=== PATIENT | female | born 1995 | race Caucasian/White ===

== ENCOUNTER → 2020-07-03 11:03 | Outpatient (CLI) | payer OTHER, SELFPAY ==
[2020-07-03 11:28] LABS: Add Manual Diff / Slide Review NO; Basophils Absolute Auto 100 /uL (0-100); Basophils Percent Auto 1.1 % (0-2); Eosinophils Absolute Auto 100 /uL (0-450); Eosinophils Percent Auto 0.8 % (2-4); Hematocrit 37.7 % (36-46); Hemoglobin 13.1 g/dL (12.0-16.0); Lymphocytes Absolute Auto 1700 /uL (1100-4500); Lymphocytes Percent Auto 22.4 % (25-40); Mean Corpuscular HGB Conc 34.9 % (30-36); Mean Corpuscular Volume 83.2 fL (80-100); Monocytes Absolute Auto 500 /uL (0-900); Monocytes Percent Auto 6.5 % (3-14); Neutrophils Absolute Auto 5100 /uL (1500-7000); Neutrophils Percent Auto 69.2 % (50-75); Platelet Count 220 X10^3/uL (150-400); Red Blood Cell Count 4.53 X10^6/uL (4.0-5.2); Red Cell Distribution Width 12.5 % (11.6-14.8); White Blood Cell Count 7.4 X10^3/uL (4.5-11.0)
[2020-07-03 12:22] LABS: Alanine Aminotransferase 11 IU/L (<35); Albumin 4.6 g/dL (3.5-5.0); Albumin Globulin Ratio 1.3 (1.0-2.8); Alkaline Phosphatase 62 U/L (38-126); Aspartate Aminotransferase 22 IU/L (14-36); BUN Creatinine Ratio 9.3 (6-22); Bilirubin Total 1.3 mg/dL (0.2-1.3); Blood Urea Nitrogen 5 mg/dL (7-17); Calcium 9.8 mg/dL (8.4-10.2); Carbon Dioxide 25 mmol/L (22-32); Chloride 103 mmol/L (98-107); Estimated Glomerular Filt Rate > 60.0 mL/min (>60); Globulin 3.6 g/dL (1.7-4.1); Glucose 86 mg/dL (70-100); HEMOLYSIS < 15 (0-50); Potassium 4.1 mmol/L (3.4-5.1); Sodium 138 mmol/L (137-145); Total Protein 8.2 g/dL (6.3-8.2)
[2020-07-03 12:59] LABS: Pregnancy Test Urine Positive (Negative)
[2020-07-03 13:03] LABS: HCG Quantitative /Beta subunit 138950 mIU/mL
== END ==
PROVIDERS: PCP Registered Nurse; Referring Provider Registered Nurse; Visit Provider Registered Nurse
DX: Z30.40 Encounter for surveillance of contraceptives, unspecified (principal); Z32.01 Encounter for pregnancy test, result positive
CPT/HCPCS: 36415; 80053; 81025; 84702; 85025

== ENCOUNTER → 2020-07-14 13:39 | Outpatient (CLI) | payer OTHER, SELFPAY ==
[2020-07-14 14:22] LABS: Add Manual Diff / Slide Review NO; Basophils Absolute Auto 0 /uL (0-100); Basophils Percent Auto 0.4 % (0-2); Eosinophils Absolute Auto 0 /uL (0-450); Eosinophils Percent Auto 0.5 % (2-4); Hematocrit 35.2 % (36-46); Hemoglobin 12.5 g/dL (12.0-16.0); Lymphocytes Absolute Auto 1400 /uL (1100-4500); Lymphocytes Percent Auto 15.2 % (25-40); Mean Corpuscular HGB Conc 35.5 % (30-36); Mean Corpuscular Hemoglobin 29.6 PG (26-34); Mean Corpuscular Volume 83.2 fL (80-100); Monocytes Absolute Auto 500 /uL (0-900); Neutrophils Absolute Auto 7300 /uL (1500-7000); Neutrophils Percent Auto 78.9 % (50-75); Platelet Count 219 X10^3/uL (150-400); Red Blood Cell Count 4.24 X10^6/uL (4.0-5.2); Red Cell Distribution Width 12.3 % (11.6-14.8); White Blood Cell Count 9.2 X10^3/uL (4.5-11.0)
[2020-07-14 14:36] LABS: Appearance Urine UA CLEAR; Bilirubin Urine UA NEGATIVE (NEGATIVE); Color Urine UA YELLOW; Glucose Urine UA NEGATIVE (Negative); Ketones Urine UA NEGATIVE (NEGATIVE); Leukocyte Esterase Urine UA TRACE (NEGATIVE); Nitrite Urine UA NEGATIVE (Negative); Occult Blood Urine UA TRACE-LYSED (Negative); Protein Urine UA NEGATIVE (Negative); Urobilinogen Urine UA 0.2 E.U./dL (0.2)
[2020-07-14 15:09] LABS: RBC Urine 0-1/HPF (0-5/HPF)
[2020-07-14 15:10] LABS: Amorphous Sediment Urine 1+; Bacteria Urine Moderate (10-30); Squamous Epithelial Cell Urine 1-5 /HPF (0-5/HPF); WBC Urine 1-5/HPF (0-5/HPF)
[2020-07-14 16:19] LABS: Hepatitis B Surface Antigen NEGATIVE s/c (NEGATIVE); Rubella Antibody IgG 32.9 IU/mL (>15)
[2020-07-14 16:42] LABS: HIV 1 & 2 Ab/Ag 4th Gen Combo NEGATIVE (NEGATIVE); Hep C Virus Ab w/Reflex Quant NEGATIVE s/c (NEGATIVE)
[2020-07-15 05:37] LABS: HSV Type 1 AB, IgG 4.51 index (0.00-0.90)
[2020-07-15 06:36] LABS: RPR Screen Non Reactive (Non Reactive)
[2020-07-15 10:44] LABS: Varicella IgG Antibody 561 index (Immune >165)
== END ==
PROVIDERS: PCP Registered Nurse; Referring Provider Obstetrics & Gynecology; Visit Provider Obstetrics & Gynecology
DX: Z34.01 Encounter for supervision of normal first pregnancy, first trimester (principal)
CPT/HCPCS: 36415; 80055; 81003; 81015; 86695; 86787; 86803; 86850; 86900; 86901; 87077; 87086; 87389

== ENCOUNTER → 2020-07-28 15:53 | Outpatient (CLI) | payer OTHER, SELFPAY ==
[2020-07-28 17:42] LABS: Urine N gonorrhoeae NOT DETECTED
[2020-07-28 17:45] LABS: Urine Chlamydia NOT DETECTED
== END ==
PROVIDERS: PCP Registered Nurse; Referring Provider Obstetrics & Gynecology; Visit Provider Obstetrics & Gynecology
DX: Z34.00 Encounter for supervision of normal first pregnancy, unspecified trimester (principal); Z3A.11 11 weeks gestation of pregnancy
CPT/HCPCS: 87491; 87591

== ENCOUNTER → 2020-09-08 10:48 | Outpatient (CLI) | payer OTHER, SELFPAY ==
--- NOTE | 2020-09-08 10:49 | DI.US.S_ITS ---
PROCEDURE: US OB >= 14 WEEKS FETUS INDICATIONS: Anatomy OUTSIDE/PRIOR DATING DATA: Last menstrual period (LMP): Unknown . LMP-based estimated date of delivery (HALEY): Unknown . First dating scan (date and location): 07/03/20 . Estimated date of delivery (HALEY) from first dating scan: 01/28/21 . TECHNIQUE: Real-time scanning was performed of the fetus, with image documentation and biometric measurements. Endovaginal scanning: Not performed COMPARISON: [facility], OB <= 14 WEEKS FETUS, 07/14/2020, 13:22. [facility], OB >= 14 WEEKS FETUS, 08/22/2020, 8:40. FINDINGS: General: A single living intrauterine gestation is present. Presentation: Variable (transverse and breech). Placenta: Placental position is anterior , without previa. Amniotic fluid index: 13.6 cm, normal range is 5-24 cm. heart rate: 149 beats per minute. Maternal cervical canal: 4.1 cm long. Normal lower limit is 2.5 cm. biometrics: Biparietal diameter: 4.6 cm, 20 weeks 0 days Head circumference: 17.4 cm, 20 weeks 0 days Abdominal circumference: 14.5 cm, 19 weeks 6 days Femur length: 3.3 cm, 20 weeks 2 days Estimated gestational age from initial scan: 19 weeks 5 days Composite gestational age from present scan: 20 weeks 0 days Estimated weight and percentile: 330 g, 66th percentile Measurement variability for biometric dating: +/- 7 days from 14 weeks to 15 weeks 6 days gestation, +/- 10 days from 16 weeks to 21 weeks 6 days gestation, +/- 2 weeks from 22 weeks to 27 weeks 6 days gestation, +/- 3 weeks for 28 weeks gestation or later. weight reference: 4500 g or EFW >90/95% is considered macrosomia or large for gestational age. EFW <10% is small for gestational age. EFW 5% or less is considered intra-uterine growth restriction. Anatomic survey: Neuro: Ventricles are non-dilated at less than 10 mm. Cisterna magna is normal at 3-11 mm. Cerebellum is normal in size and morphology. Nuchal skin fold: Normal at less than 6 mm between 14-21 weeks gestational age. Face: Nose and lips, facial profile are normal. Spine: No evidence for spina bifida. Heart: 4-chambered heart is present, with normal ventricular outflow tracts. Diaphragm: Diaphragm is intact. Stomach: Left-sided stomach is present. Kidneys: No hydronephrosis. Normal is less than 5 mm in 2nd trimester, less than 7 mm in 3rd trimester. Cord: 3-vessel cord has orthotopic insertion. Bladder: Normal in size. Extremities: All 4 extremities identified. IMPRESSION: Single living intrauterine fetus in variable presentation. Normal anatomic survey. Expected interval growth Dictated by: Geraldo Lopes M.D. on 09/08/2020 at 15:37 Approved by: Geraldo Lopes M.D. on 09/08/2020 at 15:40
== END ==
PROVIDERS: PCP Registered Nurse; Referring Provider Obstetrics & Gynecology; Visit Provider Obstetrics & Gynecology
DX: Z34.02 Encounter for supervision of normal first pregnancy, second trimester (principal); Z3A.20 20 weeks gestation of pregnancy
CPT/HCPCS: 76811

== ENCOUNTER → 2020-10-06 14:37 | Outpatient (CLI) | payer OTHER, SELFPAY ==
[2020-10-06 16:12] LABS: COVID19 -Nasal RAPID Negative (Negative)
== END ==
PROVIDERS: PCP Registered Nurse; Visit Provider Physician Assistant
DX: Z20.822 Contact with and (suspected) exposure to COVID-19 (principal)
CPT/HCPCS: 87635

== ENCOUNTER → 2020-11-04 15:23 | Outpatient (CLI) | payer OTHER, SELFPAY ==
[2020-11-04 17:29] LABS: Hematocrit 28.8 % (36-46)
[2020-11-04 18:00] LABS: GTT (PREG) 1 Hour PP 50gm Dose 127 mg/dL (76-139)
== END ==
PROVIDERS: PCP Registered Nurse; Referring Provider Obstetrics & Gynecology; Visit Provider Obstetrics & Gynecology
DX: Z34.02 Encounter for supervision of normal first pregnancy, second trimester (principal); Z3A.26 26 weeks gestation of pregnancy
CPT/HCPCS: 36415; 82950; 85014; 85018

== ENCOUNTER → 2020-11-07 14:37 | Outpatient (CLI) | payer OTHER, MEDICAID, SELFPAY ==
[2020-11-08 16:35] LABS: Candida species Negative (Negative); Gardnerella vaginalis Positive (Negative); Trichomoas vaginalis Negative (Negative)
== END ==
PROVIDERS: PCP Registered Nurse; Visit Provider Obstetrics & Gynecology
DX: O23.592 Infection of other part of genital tract in pregnancy, second trimester (principal); Z3A.28 28 weeks gestation of pregnancy
CPT/HCPCS: 87480; 87510; 87660

== ENCOUNTER 2020-12-11 14:17 | Observation (INO) | payer OTHER, MEDICAID, SELFPAY ==
--- NOTE | 2020-12-11 14:58 | PM.OBTRLD ---
Visit Information Visit Information Date of evaluation: 12/11/20 Primary OB Provider: Melani Gamino Reason for Evaluation: Yes non-stress test Comments/Additional reasons for admission: at 33 weeks reporting irregular cramping, no loss of fluid, no vaginal bleeding, good movement, unclear if UTI symptoms. otherwise uncomplicated. Vital Signs Vital Signs: 129/70, heart rate 100 PFSH Medical History Elbow fracture, right (~2002) Surgical History Anesthesia History of surgery on arm (~2004) Urethra, polyp (~2011) Family History Mother Migraines Father Hyperlipidemia Grandmother Anxiety Depression Grandfather No problems noted. Grandmother Hirschsprung's disease associated with mutation in RET gene Anxiety Family/Other Hirschsprung's disease Social History marital status: unmarried,single number of children: 0 household members: family (Lives with her parents, very supportive.) lives independently: No caregiver/support person: No housing: house pets and animals: Yes (2 dogs.) occupational status: employed current occupational exposures/hazards: No special genevieve needs: No leisure activities: exercise (Cardio most days) do you feel safe at home: Yes Smoking Status: Never smoker second hand exposure: No alcohol intake: former (Pre-: Socially on weekends.) substance use type: does not use during the past year weight has: remained stable caffeine: Yes (occasional caffeine) Type(s) of exercise: regular exercise frequency: 5-6 times per week duration: 15-30 minutes/day Review of Systems Constitutional Constitutional: Reports system reviewed and no additional complaints, except as documented Gastrointestinal Gastrointestinal: Reports system reviewed and no additional complaints, except as documented Evaluation Evaluation Baseline heart rate: 145 Variability: Moderate (11-25) monitor accelerations: Present monitor decelerations: Absent Category of Tracing: Reactive Status: Category l Comments: Denies symptomatic contractions since arriving to center, uterine irritability on toco Diagnosis, Plan/Disposition Plan/Disposition Plan: UA pending, patient denies symptomatic contractions on Labor and delivery, reassuring status. Precautions discussed. OB Disposition: home
[2020-12-11 15:22] LABS: RBC Urine None Seen (0-5/HPF)
[2020-12-11 15:27] LABS: Appearance Urine UA CLEAR; Bilirubin Urine UA NEGATIVE (NEGATIVE); Color Urine UA YELLOW; Glucose Urine UA NEGATIVE (Negative); Ketones Urine UA NEGATIVE (NEGATIVE); Leukocyte Esterase Urine UA TRACE (NEGATIVE); Nitrite Urine UA NEGATIVE (Negative); Occult Blood Urine UA NEGATIVE (Negative); Protein Urine UA NEGATIVE (Negative); Specific Gravity Urine UA 1.015 (1.000-1.035); Urobilinogen Urine UA 0.2 E.U./dL (0.2)
[2020-12-11 15:42] LABS: Amorphous Sediment Urine 1+; Bacteria Urine Moderate (10-30); Culture Indicated Urine Specimen Cultured; Mucus Urine 1+ (Negative); Squamous Epithelial Cell Urine 1-5 /HPF (0-5/HPF); WBC Urine 5-10/HPF (0-5/HPF)
== END 2020-12-11 16:45 | disposition home or self-care (01) ==
PROVIDERS: Admitting Provider Obstetrics & Gynecology; PCP Registered Nurse; Referring Provider Obstetrics & Gynecology; Visit Provider Obstetrics & Gynecology
DX: O47.03 False labor before 37 completed weeks of gestation, third trimester (principal); Z3A.33 33 weeks gestation of pregnancy
CPT/HCPCS: 59025; 81001; 87086; G0378; G0379

== ENCOUNTER → 2020-12-25 09:40 | Outpatient (CLI) | payer OTHER, MEDICAID, SELFPAY ==
[2020-12-25 10:35] LABS: COVID19 -Nasal RAPID Negative (Negative)
== END ==
PROVIDERS: PCP Registered Nurse; Visit Provider Physician Assistant
DX: Z20.822 Contact with and (suspected) exposure to COVID-19 (principal); R05 Cough
CPT/HCPCS: 87635

== ENCOUNTER → 2021-01-02 14:17 | Outpatient (CLI) | payer OTHER, MEDICAID, SELFPAY ==
[2021-01-03 11:49] LABS: Strep Grp B PCR NEG for Grp B Strep
== END ==
PROVIDERS: PCP Registered Nurse; Visit Provider Obstetrics & Gynecology
DX: Z34.03 Encounter for supervision of normal first pregnancy, third trimester (principal); Z3A.36 36 weeks gestation of pregnancy
CPT/HCPCS: 87653

== ENCOUNTER 2021-01-09 16:29 | Outpatient (CLI) | payer OTHER, MEDICAID, SELFPAY ==
--- NOTE | 2021-01-09 16:59 | PM.OBTRLD ---
Visit Information Visit Information Date of evaluation: 01/09/21 Primary OB Provider: Melani Gamino Reason for Evaluation: Yes non-stress test Comments/Additional reasons for admission: Decreased movement Vital Signs Vital Signs: 118/67< HR 85 PFSH Medical History Elbow fracture, right (~2002) Surgical History Anesthesia History of surgery on arm (~2004) Urethra, polyp (~2011) Family History Mother Migraines Father Hyperlipidemia Grandmother Anxiety Depression Grandfather No problems noted. Grandmother Hirschsprung's disease associated with mutation in RET gene Anxiety Family/Other Hirschsprung's disease Social History marital status: unmarried,single number of children: 0 household members: family (Lives with her parents, very supportive.) lives independently: No caregiver/support person: No housing: house pets and animals: Yes (2 dogs.) occupational status: employed current occupational exposures/hazards: No special genevieve needs: No leisure activities: exercise (Cardio most days) do you feel safe at home: Yes Smoking Status: Never smoker second hand exposure: No alcohol intake: former (Pre-: Socially on weekends.) substance use type: does not use during the past year weight has: remained stable caffeine: Yes (occasional caffeine) Type(s) of exercise: regular exercise frequency: 5-6 times per week duration: 15-30 minutes/day Evaluation Evaluation Baseline heart rate: 120 Variability: Moderate (11-25) monitor accelerations: Present monitor decelerations: Absent Category of Tracing: Reactive Status: Category l Diagnosis, Plan/Disposition Plan/Disposition Plan: Home with routine precautions. Copious movement visible through patient abdomen (patient slim) during exam. OB Disposition: home
== END 2021-01-09 17:12 | disposition home or self-care (01) ==
LOC: OB 01-12 07:03
PROVIDERS: PCP Registered Nurse; Referring Provider Obstetrics & Gynecology; Visit Provider Obstetrics & Gynecology
DX: O36.8130 Decreased fetal movements, third trimester, not applicable or unspecified (principal); Z3A.37 37 weeks gestation of pregnancy
CPT/HCPCS: 59025; G0378; G0379

== ENCOUNTER 2021-01-30 16:01 | Outpatient (CLI) | payer OTHER, MEDICAID, SELFPAY ==
--- NOTE | 2021-01-31 10:18 | PM.OBTRLD ---
Visit Information Visit Information Date of evaluation: 01/31/21 Primary OB Provider: Melani Gamino Reason for Evaluation: Yes non-stress test Comments/Additional reasons for admission: This patient is a 25yo #40+2 presenting for scheduled postdates NST with no complaints, largely asymptomatic contractions. Vital Signs Vital Signs: normotenstive [facility] Medical History Elbow fracture, right (~2002) Surgical History Anesthesia History of surgery on arm (~2004) Urethra, polyp (~2011) Family History Mother Migraines Father Hyperlipidemia Grandmother Anxiety Depression Grandfather No problems noted. Grandmother Hirschsprung's disease associated with mutation in RET gene Anxiety Family/Other Hirschsprung's disease Social History marital status: unmarried,single number of children: 0 household members: family (Lives with her parents, very supportive.) lives independently: No caregiver/support person: No housing: house pets and animals: Yes (2 dogs.) occupational status: employed current occupational exposures/hazards: No special genevieve needs: No leisure activities: exercise (Cardio most days) do you feel safe at home: Yes Smoking Status: Never smoker second hand exposure: No alcohol intake: former (Pre-: Socially on weekends.) substance use type: does not use during the past year weight has: remained stable caffeine: Yes (occasional caffeine) Type(s) of exercise: regular exercise frequency: 5-6 times per week duration: 15-30 minutes/day Evaluation Evaluation Baseline heart rate: 115 Variability: Moderate (11-25) monitor accelerations: Present Monitor Decelerations: Absent Contraction Frequency (minutes): 2 Category of Tracing: Reactive Status: Category l Diagnosis, Plan/Disposition Plan/Disposition Plan: To clinic for BPP/cervical check. OB Disposition: home
== END 2021-01-30 16:32 | disposition home or self-care (01) ==
LOC: LABOR 16:29 → OB 02-02 08:29
PROVIDERS: PCP Registered Nurse; Referring Provider Obstetrics & Gynecology; Visit Provider Obstetrics & Gynecology
DX: O48.0 Post-term pregnancy (principal); Z3A.40 40 weeks gestation of pregnancy
CPT/HCPCS: 59025; G0378; G0379

== ENCOUNTER 2021-02-03 07:17 | Inpatient (IN) | payer OTHER, MEDICAID, SELFPAY ==
[2021-02-03] VITALS (7 sets, daily range): BP systolic 116–136; BP diastolic 71–76; PULSE 71–81; RESP 12–18; TEMP 36.9; O2SAT 100
[2021-02-03] MEDS: LACTATED RINGERS 1,000 ML 100 ML IV (08:09)
[2021-02-03] MEDS: OXYTOCIN PREMIX 30 UNIT/500 ML PLAST..BAG IV (08:09)
[2021-02-03 08:49] LABS: Add Manual Diff / Slide Review NO; Basophils Absolute Auto 0 /uL (0-100); Basophils Percent Auto 0.5 % (0-2); Eosinophils Absolute Auto 100 /uL (0-450); Eosinophils Percent Auto 0.8 % (2-4); Hematocrit 34.5 % (36-46); Hemoglobin 11.6 g/dL (12.0-16.0); Lymphocytes Absolute Auto 1900 /uL (1100-4500); Lymphocytes Percent Auto 19.5 % (25-40); Mean Corpuscular HGB Conc 33.6 % (30-36); Mean Corpuscular Hemoglobin 26.8 PG (26-34); Mean Corpuscular Volume 79.8 fL (80-100); Monocytes Absolute Auto 600 /uL (0-900); Monocytes Percent Auto 6.6 % (3-14); Neutrophils Absolute Auto 7000 /uL (1500-7000); Neutrophils Percent Auto 72.6 % (50-75); Platelet Count 194 X10^3/uL (150-400); Red Blood Cell Count 4.33 X10^6/uL (4.0-5.2); Red Cell Distribution Width 17.8 % (11.6-14.8); White Blood Cell Count 9.7 X10^3/uL (4.5-11.0)
--- NOTE | 2021-02-03 09:23 | P.HPOB_ITS ---
OB HPI Date/Time Date of admission: 02/03/21 Date Patient Seen: 02/03/21 Time Patient Seen: 07:35 History of Present Condition Chief complaint: INDUCTION : 1 Para: 0 Estimated Date of Delivery: 01/28/21 Estimated Gestational Age (weeks): 40 Narrative: Claribel Corral is a 25 year old @40+6 presenting for induction of labor for postdates. The patient reports intermittent contractions, but is otherwise feeling well with no symptoms obstetrical or otherwise. 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 The patient has a family history of Hirschsprungs disease, and we have discussed that there is no genetic test, that the diagnosis may not be immediately obvious in the delivery room due to incomplete penetrance and the variety of phenotypes, and the pathophysiology of the disease. The patient was offered referral to [facility] and genetic counselling for a second opinion on this issue and declined. The patient has a history of anxiety and depression, is not currently involved with the FOB though he is aware and supportive, and has good social support from family. She has no other contributory medical, surgical, family, or social history. Indications Indication for induction OB: post dates History of Present care: good care Dating criteria: based on 1st trimester US only (conceived on OCPs) Ultrasounds: normal 1st trimester US and normal mid trimester US Obstetrical complications: none Medical complications: none Preadmission Labs Blood type: O (+) positive -: Antibody screen: negative, GBS status: negative, HBsAG: negative, HIV: negative, HSV 1: positive and RPR/VDLR: negative -: Chlamydia screen: not detected and Gonorrhea screen: not detected -: Rubella: immune and Varicella: immune Integrated screen: did not pursue after counselling Urine: neg 1 hr GTT: 127 Evaluation Evaluation Baseline heart rate: 150 Variability: Moderate (11-25) monitor accelerations: Present Monitor Decelerations: Absent Contraction Frequency (minutes): 3 Category of Tracing: Reactive Status: Category l Laboratory results: Laboratory Tests 02/03/21 07:50 WBC 9.7 RBC 4.33 Hgb 11.6 L Hct 34.5 L MCV 79.8 L MCH 26.8 MCHC 33.6 RDW 17.8 H Plt Count 194 Neut % (Auto) 72.6 Lymph % (Auto) 19.5 L [place]son % (Auto) 6.6 Eos % (Auto) 0.8 L Baso % (Auto) 0.5 Neut # (Auto) 7000 Lymph # (Auto) 1900 [place]son # (Auto) 600 Eos # (Auto) 100 Baso # (Auto) 0 PFSH Medical History Elbow fracture, right (~2002) Surgical History Anesthesia History of surgery on arm (~2004) Urethra, polyp (~2011) Family History Mother Migraines Father Hyperlipidemia Grandmother Anxiety Depression Grandfather No problems noted. Grandmother Hirschsprung's disease associated with mutation in RET gene Anxiety Family/Other Hirschsprung's disease Social History marital status: unmarried,single number of children: 0 household members: family (Lives with her parents, very supportive.) lives independently: No caregiver/support person: No housing: house pets and animals: Yes (2 dogs.) occupational status: employed current occupational exposures/hazards: No special genevieve needs: No leisure activities: exercise (Cardio most days) do you feel safe at home: Yes Smoking Status: Never smoker second hand exposure: No alcohol intake: former (Pre-: Socially on weekends.) substance use type: does not use during the past year weight has: remained stable caffeine: Yes (occasional caffeine) Type(s) of exercise: regular exercise frequency: 5-6 times per week duration: 15-30 minutes/day Meds Home Medications and Allergies Home Medications Medication Instructions Recorded Confirmed Type prenat.vits,yrn,nzk-aqaf-vihfm 1 tab PO DAILY #90 tab 07/10/20 11/21/20 Rx valacyclovir 500 mg tablet 500 mg PO DAILY #30 tab 01/02/21 01/02/21 Rx ferrous sulfate 325 mg (65 mg 325 mg PO BID #60 tab 01/23/21 Rx iron) tablet Allergies Allergy/AdvReac Type Severity Reaction Status Date / Time No Known Drug Allergies Allergy Verified 11/21/20 14:40 Review of Systems Constitutional Constitutional: Reports system reviewed and no additional complaints, except as documented Cardiovascular Cardiovascular: Reports system reviewed and no additional complaints, except as documented Respiratory Respiratory: Reports system reviewed and no additional complaints, except as documented Gastrointestinal Gastrointestinal: Reports system reviewed and no additional complaints, except a s documented Genitourinary Genitourinary: Reports as per HPI Exam Vital Signs (past 8 hours): 122/75, HR 72 Const General: cooperative, healthy appearing, comfortable and acute distress Resp Effort & Inspection: normal respiratory effort Auscultation: clear to auscultation bilaterally Cardio Rate: regular rate Rhythm: regular rhythm GI Palpation: soft and No tender External Female Exam: normal external appearance Extrem General: normal to inspection Objective Labs Result Diagrams: 02/03/21 07:50 Labs: Laboratory Results - last 24 hr 02/03/21 07:50 WBC 9.7 RBC 4.33 Hgb 11.6 L Hct 34.5 L MCV 79.8 L MCH 26.8 MCHC 33.6 RDW 17.8 H Plt Count 194 Neut % (Auto) 72.6 Lymph % (Auto) 19.5 L Anson % (Auto) 6.6 Eos % (Auto) 0.8 L Baso % (Auto) 0.5 Neut # (Auto) 7000 Lymph # (Auto) 1900 Anson # (Auto) 600 Eos # (Auto) 100 Baso # (Auto) 0 Assessment and Plan Assessment and Plan Assessment and Plan narrative: This patient is admitted for induction of labor for postdates, with a favorable cervix and so for pitocin protocol. Patient is GBS negative. EFW is 9#, discussed risks of induction/CS with patient and support person. - CBC, T&S, covid rapid test - cEFM, toco - pitocin per protocol - epidural when requested
--- NOTE | 2021-02-03 10:21 | PM.OBPNLAB ---
Date/Time Date Patient Seen: 02/03/21 Time Patient Seen: 10:21 Pain Control Pain control: tolerating well Comments: VSS Pelvic Exam Dilation (cm): 4 Effacement (%): 80 station: 0 Amniotic membrane status: Ruptured (light meconium) Contractions Pitocin rate (mU/min): 1 Contraction frequency (min): 2 Contraction duration (min): 4 Contraction pattern: Regular Status status: Category ll (rare variables) Heart Rate Baseline: 155 Monitor Accelerations: Present Monitor Decelerations: Variable (rare) Monitor Variability: Moderate Assessment and Plan Assessment: induction ongoing Plan: continuous present management Comments: Patient tolerating augmentation with pitocin well.
[2021-02-03 10:44] LABS: COVID19 - ADMIT (NP swab/PCR) Negative (Negative)
--- NOTE | 2021-02-03 13:03 | PM.OBPNLAB ---
Date/Time Date Patient Seen: 02/03/21 Time Patient Seen: 13:04 Pain Control Pain control: epidural Pelvic Exam Dilation (cm): 5 Effacement (%): 100 station: 0 Amniotic membrane status: Ruptured (light meconium) Comments: 5.5cm. +scalp stim. Contractions Pitocin rate (mU/min): 4 Contraction frequency (min): 2 Contraction pattern: Regular Status status: Category l Heart Rate Baseline: 11 Monitor Accelerations: Present Monitor Decelerations: Early Monitor Variability: Moderate Assessment and Plan Assessment: induction ongoing Plan: continuous present management
[2021-02-03] MEDS: LACTATED RINGERS 1,000 ML 1000 ML IV (13:30)
--- NOTE | 2021-02-03 17:03 | PM.PREOP ---
Pre-operative Note COVID-19 COVID-19 status: Negative Result date/Date tested (Pos, Neg/Pending): 02/03/21 Interval Note History & Physical reviewed/Exam performed by Physician: Yes Changes to H&P: No
--- NOTE | 2021-02-03 17:03 | PM.OBPNLAB ---
Date/Time Date Patient Seen: 02/03/21 Time Patient Seen: 17:03 Pain Control Pain control: epidural Pelvic Exam Dilation (cm): 7 Effacement (%): 80 station: 0 Amniotic membrane status: Ruptured (light meconium) Comments: 7.5cm, edematous. IUPC placed at 4:00, same exam, adequate contractions. IUPC fell out during patient movement. Contractions Pitocin rate (mU/min): 0 Contraction frequency (min): 2 Contraction pattern: Regular Contraction intensity: Strong/Firm Status status: Category ll Heart Rate Baseline: 110 Monitor Accelerations: Absent (+scalp stim) Monitor Decelerations: Late Monitor Variability: Minimal Assessment and Plan Plan: Comments: Patient has made no cervical change, has adequate contractions on IUPC, has an EFW of 9# and is in OP presentation. In the setting of a worsening cat 2 heart rate tracing despite several hours off pitocin, the patient was counselled for urgent section. We discussed risk of infection, hemorrhage, damage to surrounding organs, and placental abnormalities in future pregnancies vs. the danger now of hypoxemia. Informed consent was obtained for section and consents were signed.
[2021-02-03] MEDS: ACETAMINOPHEN 325 MG TABLET 975 MG PO (17:19)
[2021-02-03] MEDS: CITRIC ACID/SODIUM CITRATE 15 ML SOLUTION 30 ML PO (17:19)
[2021-02-03] MEDS: CEFAZOLIN 2 GM/100 ML FROZ.PIGGY IV (17:33)
[2021-02-03] MEDS: AZITHROMYCIN 500 MG in DEXTROSE 5% IN WATER 250 ML IV (17:44)
--- NOTE | 2021-02-03 17:45 | SUR.OPER ---
Supine on Padded OR bed, head on pillow, safety belt at thigh, arms secured on padded arm boards at <90 degrees abduction. Bump under right buttock. Legs uncrossed with pillow under knees, gel pad to heels, tape over blanket to lower legs.
[2021-02-03] MEDS: KETOROLAC 30 MG/ML VIAL IV (18:15)
--- NOTE | 2021-02-03 18:25 | SUR.OPER ---
heart tones at 103-108 prior to incision,viable baby boy born at 1750, placenta delivered at 1755, cord blood and placenta sent to OB with OB RN
--- NOTE | 2021-02-03 18:54 | P.OP_ITS ---
Operative Date/Time/Diagnoses Date of procedure: 02/03/21 Time of procedure: 18:54 Pre-op diagnosis: intolerance of labor Post-op diagnosis: same Procedure & Clinicians Procedure: primary section Same procedure as scheduled: Yes Indications: intolerance of labor, protracted active phase of labor Surgeon: Melani Gamino Learning And Development Coordinator: Delfino Eubanks Reason for Learning And Development Coordinator: Retraction, emergent delivery of baby, visualization and repair Anesthesia Type: Epidural Operative Notes Findings: normal uterus, tubes, ovaries. Male fetus in cephalic, direct OP presentation, weight 9#5, apgars Closure Type: primary Specimen(s): cord pH Intraoperative meds administered: Ketorolac and Pitocin Estimated Blood Loss (mL): 750 Blood products transfused: none Procedure in detail: EBL: 750ccs Fluids: 1000 ccs LR UOP: 200ccs yellow urine, blood tinged at start of case Findings: Male infant in cephalic presentation, Apgars 8+9, weight 9#5oz, normal uterus, tubes, ovaries. Procedures: The patient was taken to the operating room where spinal anesthesia was placed and found to be adequate. She was prepped and draped in the normal sterile fashion in the dorsal supine position with a leftward tilt. Prep present expeditious, as heart rate had been 120 leaving the labor and delivery room but was 103 on arrival to the OR. A Pfannenstiel skin incision was made with a scalpel and carried through to the underlying layer of fascia. The fascia was incised in the midline and the incision extended laterally with Coleman scissors. The superior aspect of this incision was grasped with Olga Lidia clamps, elevated, and the underlying rectus muscles dissected off bluntly and with the curved Coleman scissors. Attention was then turned to the inferior aspect of this incision which, in a similar fashion, was grasped, tented up with the Olga Lidia clamps, and the rectus muscles dissected off bluntly and with the curved Coleman scissors. The rectus muscles were then in the midline, and the peritoneum identified, tented up, and entered sharply with Metzenbaum scissors. The peritoneal incision was extended superiorly and inferiorly with good visualization of the bladder. The bladder blade was inserted and the vesicouterine peritoneum identified, grasped with pickups, and entered sharply with the Metzenbaum scissors. This incision was extended laterally, and the gladis dder flap created digitally. The bladder blade was then reinserted and the lower uterine segment incised in transverse fashion with the scalpel. The uterine incision was bluntly extended laterally. The bladder blade was removed, and the 's head delivered atraumatically. The cord was immediately clamped and cut due to reduced tone of the immediately after delivery. The infant was handed off to awaiting pediatricians. The placenta was then removed spontaneously, and the uterus was exteriorized and cleared of all clots and debris. The uterine incision was repaired with 1-0 ch romic in a running, locked fashion and a 2nd layer of the same suture was used to obtain excellent hemostasis. The uterus was returned to the abdomen, and the gutters were cleared of all clots and debris. The bladder flap was closed with 2-0 Vicryl in a running fashion, the peritoneum was closed with 3-0 Vicryl, and the fascia reapproximated with 0 Vicryl in a running fashion. The subcutaneous layer was placed with 3 0 Vicryl in an interrupted fashion and the skin was closed with 4-0 biosyn in a running fashion. The patient tolerated the procedure well, and sponge, lap, and needle counts we re correct x2. 2 g of Ancef and 500mg Azithromycin were given at commencement of the case. A vaginal betadine prep was performed at the beginning of the case. The patient was taken to the recovery room in stable condition. Complications: none Baby Td Joseph: Infant Gender: Male Presentation: vertex Position: Occiput Posterior Placental Delivery Description: Manual Removal Cord Vessel Description: Nuchal Cord (loose) score (1 min): 8 score (5 min): 8 weight: 9 lb 5 oz Post-operative Condition: stable Disposition: PACU Aftercare: routine postop
[2021-02-04] MEDS: KETOROLAC 30 MG/ML VIAL IV ×3 (00:42→12:10)
[2021-02-04] MEDS: LACTATED RINGERS 1,000 ML 100 ML IV (05:45)
[2021-02-04 06:37] LABS: Add Manual Diff / Slide Review NO; Basophils Absolute Auto 0 /uL (0-100); Basophils Percent Auto 0.3 % (0-2); Eosinophils Absolute Auto 100 /uL (0-450); Eosinophils Percent Auto 0.6 % (2-4); Hemoglobin 8.3 g/dL (12.0-16.0); Lymphocytes Absolute Auto 1000 /uL (1100-4500); Lymphocytes Percent Auto 8.3 % (25-40); Mean Corpuscular HGB Conc 33.7 % (30-36); Mean Corpuscular Hemoglobin 26.7 PG (26-34); Mean Corpuscular Volume 79.2 fL (80-100); Monocytes Absolute Auto 1000 /uL (0-900); Monocytes Percent Auto 7.9 % (3-14); Neutrophils Absolute Auto 10000 /uL (1500-7000); Neutrophils Percent Auto 82.9 % (50-75); Platelet Count 144 X10^3/uL (150-400); Red Cell Distribution Width 17.6 % (11.6-14.8); White Blood Cell Count 12.1 X10^3/uL (4.5-11.0)
[2021-02-04 06:50] LABS: Hematocrit 24.5 % (36-46)
[2021-02-04] MEDS: DOCUSATE 250 MG CAPSULE PO (08:09)
[2021-02-04] MEDS: ACETAMINOPHEN 325 MG TABLET 650 MG PO ×3 (08:09→23:01)
--- NOTE | 2021-02-04 10:18 | PM.OBPN.1 ---
Subjective - OB Subjective Patient comments: no complaints, pain well controlled, tolerating diet and flatus present baby status: doing well feeding status: exclusively breast feeding Date Patient Seen: 02/04/21 Time Patient Seen: 10:18 Exam Vital Signs (past 8 hours): 105/72, HR 80 Oxygen Delivery Method Room Air Narrative Exam Narrative: Patient reports feeling well, good pain control on PO pain medications, tolerating PO intake, passing flatus. For VT later today, to ambulate later today. No other symptoms, PIH complaints Const General: cooperative, healthy appearing, comfortable and acute distress Resp Effort & Inspection: normal respiratory effort Auscultation: clear to auscultation bilaterally Cardio Rate: regular rate Rhythm: regular rhythm GI Inspection: incision (covered by aquacell, stable blood on bandage) Palpation: soft and No tender Extrem General: normal to inspection Objective Labs Result Diagrams: 02/04/21 05:37 Labs: Laboratory Results - last 24 hr 02/03/21 02/04/21 09:40 05:37 WBC 12.1 H RBC 3.10 L Hgb 8.3 L Hct 24.5 L MCV 79.2 L MCH 26.7 MCHC 33.7 RDW 17.6 H Plt Count 144 L Neut % (Auto) 82.9 H Lymph % (Auto) 8.3 L [place] % (Auto) 7.9 Eos % (Auto) 0.6 L Baso % (Auto) 0.3 Neut # (Auto) 08921 H Lymph # (Auto) 1000 L [place] # (Auto) 1000 H Eos # (Auto) 100 Baso # (Auto) 0 SARS-CoV-2 (PCR) Negative Assessment & Plan Plan day: 1 plan OB: routine postop care Time Spent With Patient Time: Total time spent is greater than 50% in coordination of care (as documented) at patient's floor/unit and/or counseling patient: Time with patient: less than 15 minutes
[2021-02-04] MEDS: IBUPROFEN 600 MG TABLET PO (18:47)
[2021-02-05] MEDS: IBUPROFEN 600 MG TABLET PO ×2 (02:53→10:00)
[2021-02-05] MEDS: ACETAMINOPHEN 325 MG TABLET 650 MG PO ×2 (04:40→10:00)
--- NOTE | 2021-02-05 09:30 | PM.OBDS.1 ---
Discharge Providers Provider Date of admission: 02/03/21 07:17 Discharge Date: 02/05/21 Primary care physician: GISELA Sommers Consults: 02/03/21 19:55 Consult to Fabrication Specialist Routine Comment: Discharge provider: Melani Gamino MD Summary Hospital Course Date Patient Seen: 02/05/21 Time Patient Seen: 08:00 Diagnoses: Primary section Hospital Course: This patient was admitted for induction of labor for postdates. She had an arrest in active stage of labor in the setting of a 9 lb 5 oz, OP fetus. She was taken for primary section to the setting of a category 2 tracing and was delivered of a healthy baby boy without complication. Her postoperative course was uncomplicated, and she was discharged on postoperative day 2 with routine precautions and follow-up. Peripartum Data Infant Delivery Method: Section Procedures: Primary section complications: none [place] 1: Gender: Male Disposition of : home Status at Discharge Cognitive/behavioral status at discharge: oriented Functional status at discharge: independent ambulation Overall status at discharge: patient is progressing back to baseline Time Spent with Patient Time attestation: Total time spent providing and/or coordinating discharge services: Objective Labs Result Diagrams: 02/04/21 05:37 Exam Vital Signs (past 8 hours): Vital signs stable Oxygen Delivery Method Room Air Narrative Exam Narrative: Patient resting in bed. Voiding, ambulating, passing flatus, mild to moderate lochia, good pain control on p.o. medications. Const General: cooperative, healthy appearing and comfortable Resp Effort & Inspection: normal respiratory effort Auscultation: clear to auscultation bilaterally Cardio Rate: regular rate Rhythm: regular rhythm GI Inspection: incision (Clean, dry, intact, covered by Aquacel) Palpation: soft and No tender Extrem General: normal to inspection Discharge Plan Discharge Plan Patient Disposition: Home Discharge orders & Medications Prescriptions: New oxycodone 5 mg tablet 5 mg PO Q6H PRN (Reason: pain) Qty: 14 RF: 0 sertraline 25 mg tablet 25 mg PO DAILY Qty: 30 RF: 2 docusate sodium 100 mg capsule 100 mg PO BID Qty: 60 RF: 2 Continued ferrous sulfate [FeroSul] 325 mg (65 mg iron) tablet 325 mg PO BID Qty: 60 RF: 5 prenat.vits,yrn,cam-rprp-xhsrq Tablet 1 tab PO DAILY Qty: 90 RF: 3 valacyclovir [Valtrex] 500 mg tablet 500 mg PO DAILY Qty: 30 RF: 3 Follow up/Referrals: [place],MD Melani [Physician] - 02/09/21 4:15 pm (incision check) Florinda Banks ARNP [Primary Care Provider] - Diet/Activity/Treatments Diet: Regular Activity: Nothing in the vagina for 6 weeks. Avoid heavy lifting for 6 weeks. If you have increasing bleeding, fevers, chills, nausea, vomiting, headaches, visual changes, or any other symptoms, call or come to the emergency room. Skin/Wound/Dressing Care Report to your healthcare provider any signs of infection, such as:: chills, fever, night sweats, increased pain, unusual drainage and unusual redness Visit Report/Discharge Packet Instructions: DI for Stand Alone Forms: Discharge: Care Discharge Data Primary Care Provider: Florinda Banks
[2021-02-05 09:40] VITALS: BP 127/76; PULSE 75; RESP 16; TEMP 36.9
[2021-02-05] MEDS: DOCUSATE 250 MG CAPSULE PO (11:47)
== END 2021-02-05 14:00 | disposition home or self-care (01) | DRG 540 ==
PROVIDERS: Admitting Provider Obstetrics & Gynecology; PCP Registered Nurse; Referring Provider Obstetrics & Gynecology; Visit Provider Obstetrics & Gynecology
PROC: 10D00Z1 Extraction of Products of Conception, Low, Open Approach (ICD-10-PCS; CPT 59514; principal; 2021-02-03 17:30)
DX: O48.0 Post-term pregnancy (principal); Z3A.40 40 weeks gestation of pregnancy; Z37.0 Single live birth; O77.0 Labor and delivery complicated by meconium in amniotic fluid; O76 Abnormality in fetal heart rate and rhythm complicating labor and delivery; Z20.822 Contact with and (suspected) exposure to COVID-19; O63.1 Prolonged second stage (of labor); O98.32 Other infections with a predominantly sexual mode of transmission complicating childbirth; B00.9 Herpesviral infection, unspecified
CPT/HCPCS: 01967; 01968; 36415; 59050; 59514; 85025; 86850; 86900; 86901; 87635; C9803; J0690; J1885; J2274; J2590